=== PATIENT | female | born 1955 | race Caucasian/White ===

== ENCOUNTER 2018-10-12 09:37 | Emergency (ER) | payer BC ==
[~2018-10-12] VITALS: Ht 165.1 cm; Wt 75.0 kg
[~2018-10-12 09:37] MED LIST: ADLT ASA LOW81 MG PO; ASPIRIN LOW81 M1; BABY ASPIRIN81 MG PO; CIPROFLOXACN500 MG PO; FISH OIL1000 MG PO; FLAGYL500 MG PO; GNP CINNAMON500 M1 PO; KETOROLAC60 MG/2 ML IJ; LOVASTATIN10 M1 PO; PRILOSEC20 MG PO; ULTRAM50 M1 PO; ZOLOFT50 MG; ZOLOFT50 MG OR; ZOLOFT50 MG PO
[2018-10-12] MEDS ORDERED: LOSARTAN POTASS25 MG PO (10:21)
[2018-10-12 10:32] LABS: HEMATOCRIT 41.3 % (37.0-47.0); HEMOGLOBIN 13.7 g/dl (12.0-16.0); IMMATURE GRANULOCYTES 0.3 % (0.0-5.0); MEAN CELL VOLUME 90.2 fL CALC (80.0-100.0); MEAN CORPUSCULAR HGB 29.9 pG CALC (26.0-32.0); MEAN CORPUSCULAR HGB CONC 33.2 g/L CALC (32.0-36.0); NEUT# 3.86 thou/uL (2.00-7.15); RED BLOOD COUNT 4.58 mill/uL (4.20-5.60); RED CELL DISTRI WIDTH 13.3 % (11.5-15.5)
[2018-10-12 10:57] LABS: ALBUMIN 4.5 g/dL (3.2-5.0); ALKALINE PHOSPHATASE 75 u/l (38-126); ANION GAP 14 (6-22 (CALC)); BILIRUBIN, TOTAL 0.4 mg/dL (0.0-1.4); BUN 12 mg/dL (8-23); BUN/CREATININE RATIO 19 (12-20 (CALC)); CARBON DIOXIDE 25 mmol/l (22-30); CHLORIDE 104 mmol/l (95-108); CREATININE 0.6 mg/dL (0.5-1.0); GFR > 60 ML/MIN (>=60 (CALC)); GFR FOR AFR.AMER. > 60 ML/MIN (>=60 (CALC)); POTASSIUM 4.5 mmol/l (3.5-5.1); SGOT/AST 24 u/l (9-36); SODIUM 138 mmol/l (137-146); TOTAL PROTEIN 7.8 g/dL (6.3-8.2)
[2018-10-12 11:10] LABS: URINE BILIRUBIN - DIPSTICK NEGATIVE (NEGATIVE); URINE BLOOD DIPSTICK NEGATIVE (NEGATIVE); URINE COLOR YELLOW; URINE GLUCOSE - DIPSTICK NEGATIVE (NEGATIVE); URINE KETONE NEGATIVE (NEGATIVE); URINE LEUK ESTERASE SMALL (NEGATIVE); URINE NITRITE - DIPSTICK NEGATIVE (Negative); URINE PROTEIN - DIPSTICK NEGATIVE (NEG-TRACE); URINE SPECIFIC GRAVITY <=1.005; URINE UROBILINOGEN - DIPSTICK 0.2 E.U./dL (0.2)
[2018-10-12 11:26] LABS: URINE BACTERIA FEW hpf; URINE SQUAMOUS EPITHELIAL CELL FEW EPI/hpf (0-FEW); URINE WBC 0-2 WBC/hpf (0-5)
[2018-10-12] MEDS ORDERED: MECLIZINE25 MG PO (12:32)
[2018-10-12 12:45] VITALS: BP 143/67
== END 2018-10-12 12:45 | disposition home or self-care (01) | DRG 149 ==
LOC: ED 09:37
PROVIDERS: Family Medicine
DX: R42 Dizziness and giddiness (principal); H81.09 Meniere's disease, unspecified ear; F17.290 Nicotine dependence, other tobacco product, uncomplicated
CPT/HCPCS: Q9967

== ENCOUNTER 2021-09-12 20:30 | Emergency (ER) | payer BC ==
[~2021-09-12] VITALS: Ht 165.1 cm; Wt 69.0 kg
[~2021-09-12 20:30] MED LIST changes: +LOSARTAN POTASS25 MG PO; +MECLIZINE25 MG PO
[2021-09-12 20:36] VITALS: BP 188/78
[2021-09-12 21:16] VITALS: BP 186/97
[2021-09-12 21:19] LABS: HEMATOCRIT 37.6 % (37.0-47.0); HEMOGLOBIN 12.6 g/dl (12.0-16.0); IMMATURE GRANULOCYTES 0.1 % (0.0-5.0); MEAN CELL VOLUME 93.1 fL CALC (80.0-100.0); MEAN CORPUSCULAR HGB 31.2 pG CALC (26.0-32.0); MEAN CORPUSCULAR HGB CONC 33.5 g/dL CAL (32.0-36.0); NEUT# 4.93 thou/uL (2.00-7.15); RED BLOOD COUNT 4.04 mill/uL (4.20-5.60); RED CELL DISTRI WIDTH 12.3 % (11.5-15.5); URINE BILIRUBIN - DIPSTICK NEGATIVE (NEGATIVE); URINE BLOOD DIPSTICK TRACE-INTACT (NEGATIVE); URINE COLOR YELLOW; URINE GLUCOSE - DIPSTICK NEGATIVE (NEGATIVE); URINE KETONE NEGATIVE (NEGATIVE); URINE LEUK ESTERASE SMALL (NEGATIVE); URINE NITRITE - DIPSTICK NEGATIVE (Negative); URINE PROTEIN - DIPSTICK NEGATIVE (NEG-TRACE); URINE SPECIFIC GRAVITY <=1.005; URINE UROBILINOGEN - DIPSTICK 0.2 E.U./dL (0.2)
[2021-09-12 21:24] LABS: URINE RBC 0-2 RBC/hpf (0-5); URINE SQUAMOUS EPITHELIAL CELL FEW EPI/hpf (0-FEW)
[2021-09-12 21:30] LABS: ALKALINE PHOSPHATASE 65 u/l (38-126); ANION GAP 8 (6-22 (CALC)); BILIRUBIN, TOTAL 0.4 mg/dL (0.0-1.4); BUN 10 mg/dL (8-23); BUN/CREATININE RATIO 18 (12-20 (CALC)); CARBON DIOXIDE 27 mmol/l (22-30); CHLORIDE 101 mmol/l (95-108); CREATININE 0.6 mg/dL (0.5-1.0); GFR FOR AFR.AMER. > 60 ML/MIN (>=60 (CALC)); GFR OTHER RACES > 60 ML/MIN (>=60 (CALC)); LIPASE 90 u/l (23-300); SGOT/AST 29 u/l (9-36); SODIUM 132 mmol/l (137-146); TOTAL PROTEIN 7.3 g/dL (6.3-8.2)
[2021-09-12 21:31] VITALS: BP 202/85
[2021-09-12 21:32] VITALS: BP 181/101
[2021-09-12 21:46] VITALS: BP 199/88
[2021-09-12] MEDS ORDERED: CIPROFLOXACN500 MG PO (23:23)
[2021-09-12] MEDS ORDERED: LORTAB5 PO (23:23)
[2021-09-12] MEDS ORDERED: METRONIDAZOLE500 MG PO (23:23)
[2021-09-12 23:27] VITALS: BP 184/75
== END 2021-09-12 23:32 | disposition home or self-care (01) | DRG 392 ==
LOC: ED 20:30
PROVIDERS: Family Medicine
DX: K57.32 Diverticulitis of large intestine without perforation or abscess without bleeding (principal); I10 Essential (primary) hypertension; E11.9 Type 2 diabetes mellitus without complications; H81.09 Meniere's disease, unspecified ear; F17.210 Nicotine dependence, cigarettes, uncomplicated
CPT/HCPCS: Q9967

== ENCOUNTER 2024-04-28 10:40 | Emergency (ER) | payer MEDICARE ==
[2024-04-28] VITALS (16 sets, daily range): BP systolic 166–196; BP diastolic 68–85
[~2024-04-28] VITALS: Ht 165.1 cm; Wt 66.8 kg
[~2024-04-28 10:40] MED LIST changes: +LORTAB5 PO; +METRONIDAZOLE500 MG PO
[2024-04-28] MEDS ORDERED: hydroCHLOROthiazide 25 MG/TAB PO ONE (12:10)
[2024-04-28 12:49] LABS: ALBUMIN 4.4 g/dL (3.2-5.0); ALKALINE PHOSPHATASE 79 u/l (38-126); ANION GAP 9 (6-22 (CALC)); BILIRUBIN, TOTAL 0.4 mg/dL (0.02-1.3); BUN 9 mg/dL (8-23); BUN/CREATININE RATIO 15 (12-20 (CALC)); CARBON DIOXIDE 29 mmol/l (22-30); CHLORIDE 105 mmol/l (95-108); CREATININE 0.6 mg/dL (0.5-1.0); ESTIMATED GFR 99 ML/MIN (>=90 (CALC)); POTASSIUM 4.4 mmol/l (3.5-5.1); SGOT/AST 35 u/l (9-36); SODIUM 139 mmol/l (137-146); TOTAL PROTEIN 7.7 g/dL (6.3-8.2)
[2024-04-28 13:09] LABS: BASO% 0.9 % (0-3); EOS% 1.6 % (0-8); HEMATOCRIT 40.6 % (37.0-47.0); HEMOGLOBIN 13.6 g/dl (12.0-16.0); IMMATURE GRANULOCYTES 0.1 % (0.0-5.0); LYMPH% 36.8 % (15-41); MEAN CELL VOLUME 93.1 fL CALC (80.0-100.0); MEAN CORPUSCULAR HGB 31.2 pG CALC (26.0-32.0); MEAN CORPUSCULAR HGB CONC 33.5 g/dL CAL (32.0-36.0); MONO% 6.9 % (2-13); NEUT# 3.75 thou/uL (2.00-7.15); NEUT% 53.7 % (42-76); RED BLOOD COUNT 4.36 mill/uL (4.20-5.60); RED CELL DISTRI WIDTH 12.7 % (11.5-15.5)
[2024-04-28] MEDS ORDERED: LABETALOL HCL 20 MG/ 4 ML CARTRG IV ONE (13:20)
[2024-04-28] MEDS ORDERED: HYDROCHLOROTH12.5 MG PO (14:27)
== END 2024-04-28 14:48 | disposition home or self-care (01) ==
LOC: ED 10:40
PROVIDERS: Family Medicine
DX: I10 Essential (primary) hypertension (principal); E11.9 Type 2 diabetes mellitus without complications; E78.00 Pure hypercholesterolemia, unspecified; H81.09 Meniere's disease, unspecified ear